=== PATIENT | male | born 1935 | race Caucasian/White ===

== ENCOUNTER 2017-07-13 20:55 | Inpatient (IN) | payer MEDICARE, BC ==
[2017-07-13] MEDS: IV NORMAL SALINE 1000ML BAG 1,000 ML IV ×2 (21:30)
[2017-07-13] MEDS ORDERED: ONDANSETRON PF 4 MG/2 ML VIAL. IV ×2 (21:30)
[2017-07-13 21:45] LABS: BASO % 0 % (0-3); EOS # 0.1 x10^3/uL (0.0-0.7); EOS % 1 % (0-3); HEMATOCRIT 32.4 % (39.0-53.0); HEMOGLOBIN 11.5 g/dL (13.0-17.5); LYMPH # 0.8 x10^3/uL (1.0-4.8); LYMPH % 8 % (24-48); MEAN CORPUSCULAR HEMOGLOBIN 35 pg (25-35); MEAN CORPUSCULAR HGB CONC 36 g/dL (31-37); MEAN CORPUSCULAR VOLUME 98 fL (79-100); MONO # 0.4 x10^3/uL (0.0-1.1); MONO % 4 % (0-9); NEUT # 9.1 x10^3uL (1.8-7.7); NEUT % 88 % (31-73); PLATELET COUNT 250 x10^3/uL (140-400); RED BLOOD COUNT 3.32 x10^6/uL (4.30-5.70); RED CELL DISTRIBUTION WIDTH 12.6 % (11.5-14.5); WHITE BLOOD COUNT 10.4 x10^3/uL (4.0-11.0)
[2017-07-13] MEDS ORDERED: ONDANSETRON PF 4 MG/2 ML VIAL. ×2 (21:47)
[2017-07-13] MEDS: cloNIDine HCL 0.1 MG TABLET PO ×2 (21:50)
[2017-07-13 21:56] LABS: ANION GAP 10 (6-14); BLOOD UREA NITROGEN 25 mg/dL (8-26); BUN/CREATININE RATIO 21 (6-20); CALCIUM 9.6 mg/dL (8.5-10.1); CARBON DIOXIDE 28 mmol/L (21-32); CHLORIDE 101 mmol/L (98-107); CREATININE 1.2 mg/dL (0.7-1.3); GFR 57.7; GLUCOSE 162 mg/dL (70-99); POTASSIUM 4.3 mmol/L (3.5-5.1); SODIUM 139 mmol/L (136-145)
[2017-07-13 21:57] LABS: ADD MAN DIFF? YES
[2017-07-13] MEDS: ONDANSETRON PF 4 MG/2 ML VIAL. IV ×2 (21:59)
[2017-07-13 22:01] LABS: ALBUMIN 4.3 g/dL (3.4-5.0); ALBUMIN/GLOBULIN RATIO 1.1 (1.0-1.7); ALK PHOS 67 U/L (46-116); ALT (SGPT) 31 U/L (16-63); AST (SGOT) 24 U/L (15-37); LIPASE 205 U/L (73-393); TOTAL BILIRUBIN 0.2 mg/dL (0.2-1.0); TOTAL PROTEIN 8.1 g/dL (6.4-8.2)
[2017-07-13 22:04] LABS: TROPONINI < 0.017 ng/mL (0.000-0.055)
[2017-07-13 22:07] LABS: DIG 1.9 ng/mL (0.9-2.0)
[2017-07-13 22:21] LABS: % BANDS 1 % (0-9); % LYMPHS 8 % (24-48); % SEGS 91 % (35-66)
[2017-07-13 22:24] LABS: PLT ESTIMATE ADEQUATE (ADEQUATE); POLYCHROMASIA SLIGHT; TOXIC GRANULATION MOD
[2017-07-13] MEDS ORDERED: CONTRAST GIVEN MC ×2 (22:30)
[2017-07-13] MEDS: IOHEXOL 300 MG/ML 100ML VIAL. IV ×2 (22:32)
[2017-07-13] MEDS ORDERED: fentaNYL PF VIAL 100 MCG/2 ML VIAL ×2 (22:39)
[2017-07-13] MEDS: fentaNYL PF VIAL 100 MCG/2 ML VIAL IV ×2 (22:46)
[2017-07-13] MEDS: MORPHINE SULFATE 4 MG/ML DISP.SYRIN. IV ×2 (23:45)
[2017-07-14] MEDS: LIDO:MAALOX:DONNATAL 1:1:1 15 ML SINGLE DOSE SWSW ×2 (01:07)
[2017-07-14 01:44] LABS: LACTIC ACID 1.6 mmol/L (0.4-2.0)
[2017-07-14] MEDS ORDERED: ONDANSETRON PF 4 MG/2 ML VIAL. IV ×2 (02:30)
[2017-07-14] MEDS ORDERED: MORPHINE SULFATE 2 MG/ML DISP.SYRIN. IV ×2 (02:30)
[2017-07-14] MEDS ORDERED: IV NORMAL SALINE 1000ML BAG 1,000 ML IV ×2 (03:00)
[2017-07-14] MEDS ORDERED: cloNIDine HCL 0.1 MG TABLET ×2 (03:27)
[2017-07-14] MEDS: cloNIDine HCL 0.2 MG TABLET PO ×2 (03:29)
[2017-07-14] MEDS: CHOLECALCIFEROL (VITAMIN D3) 1,000 UNIT TABLET PO ×2 (08:47)
[2017-07-14] MEDS: ASPIRIN ENTERIC COATED 81 MG TABLET.DR. PO ×2 (08:48)
[2017-07-14] MEDS: DIGOXIN 250 MCG TABLET. PO ×2 (08:48)
[2017-07-14] MEDS: GEMFIBROZIL 600 MG TABLET. PO ×2 (08:48)
[2017-07-14] MEDS: FAMOTIDINE 20 MG/2 ML VIAL IVP ×2 (08:49)
[2017-07-14] MEDS: LOSARTAN POTASSIUM 50 MG TABLET. PO ×2 (08:49)
[2017-07-14] MEDS: VITAMIN B COMPLEX TABLET. PO ×2 (08:49)
[2017-07-14 08:51] LABS: TROPONINI 0.021 ng/mL (0.000-0.055)
[2017-07-14] MEDS ORDERED: FINASTERIDE 5 MG TABLET. PO ×2 (21:00)
[2017-07-14] MEDS ORDERED: ATORVASTATIN CALCIUM 10 MG TABLET. PO ×2 (21:00)
== END 2017-07-14 17:20 | disposition home or self-care (01) | DRG 445 ==
LOC: 1 WEST ICU 07-14 02:18 → 2 NORTH 07-14 03:17 → ER 20:55
DX: K80.20 Calculus of gallbladder without cholecystitis without obstruction (principal); K55.1 Chronic vascular disorders of intestine; D64.9 Anemia, unspecified; N18.3 Chronic kidney disease, stage 3 (moderate); Z95.1 Presence of aortocoronary bypass graft; I65.21 Occlusion and stenosis of right carotid artery; E74.39 Other disorders of intestinal carbohydrate absorption; E78.5 Hyperlipidemia, unspecified; I12.9 Hypertensive chronic kidney disease with stage 1 through stage 4 chronic kidney disease, or unspecified chronic kidney disease; I25.10 Atherosclerotic heart disease of native coronary artery without angina pectoris; K21.9 Gastro-esophageal reflux disease without esophagitis; K44.9 Diaphragmatic hernia without obstruction or gangrene; K82.8 Other specified diseases of gallbladder; N40.0 Benign prostatic hyperplasia without lower urinary tract symptoms; Z87.891 Personal history of nicotine dependence; Z95.5 Presence of coronary angioplasty implant and graft; Z88.0 Allergy status to penicillin
CPT/HCPCS: 36415; 71045; 71275; 74174; 80053; 80162; 83605; 83690; 84484; 85007; 85025; 93005; 96374; 96375; 99285; 99285-25; J2270; J3010; Q9967; S0028

== ENCOUNTER → 2018-09-14 | Outpatient (CLI) | payer MEDICARE, BC ==
[2017-07-14 15:00] VITALS: BP 91/37
[~2018-09-14] MED LIST: ASCO500C PO; ASCO500T3 PO; ASPI-252 PO; ASPI-482 PO; ASPI-630 PO; ASPI325T8 PO; CHOL10002 PO; DIGO0.25 PO; DIGO250T PO; DILT240C2 PO; DILT360C PO; FINA5TAB4 PO; GEMF600T8 PO; LISI-334 PO; LOSA-73 PO; OLME20TA17 PO; PRAV10TA2 PO; REGADENOSON 0.4 MG/5 ML DISP.SYRIN. IV ONE; VITA1CAP PO
--- NOTE | 2018-09-14 10:12 | CARD ---
MR#: [id number] Date of Study: 09/14/2018 Ordering Physician: MYRANDA ZAMARRIPA, Referring Physician: MYRANDA ZAMARRIPA, Tech: Ruth Gomes APPROVED REPORT EXAM: Two-dimensional and M-mode echocardiogram with Doppler and color Doppler. Other Information Quality : AverageHR: 44bpm Technically limited study due to body habitus. INDICATION CAD RISK FACTORS Hypertension 2D DIMENSIONS Left Atrium(2D)3.6 (1.6-4.0cm)IVSd1.5 (0.7-1.1cm) Aortic Root(2D)3.1 (2.0-3.7cm)LVDd4.8 (3.9-5.9cm) LVOT Diameter2.1 (1.8-2.4cm)PWd1.4 (0.7-1.1cm) LVDs2.8 (2.5-4.0cm)FS (%) 42.9 % SV80.5 mlLVEF(%)73.9 (>50%) Aortic Valve AoV Peak Smith.244.6cm/sAoV VTI57.0cm AO Peak GR.23.9mmHgLVOT Peak Smith.129.6cm/s LVOT VTI 34.65cmAO Mean GR.13mmHg TAMARA (VMAX)1.19lz3UKJ (VTI)2.09cm2 Mitral Valve MV E Xdfumpkp503.6cm/sMV DECEL DEGQ599nx MV A Emeamqdl44.8cm/sMV QUH81lg E/A Ratio1.0MVA (PHT)3.66cm2 TDI E/Lateral E'11.1E/Medial E'20.2 Pulmonary Valve PV Peak Vrifkome463.4cm/sPV Peak Grad.7mmHg Tricuspid Valve RAP ZIFXMPEE1tqSeYA Peak Gr.25mmHg WKNV94mbTb Pulmonary Vein S1 Irkionvi83.4cm/sD2 Fxqxwwof16.0cm/s PVa hhnqdiur149bhzk LEFT VENTRICLE The left ventricle is normal size. There is moderate concentric left ventricular hypertrophy. The lef t ventricular systolic function is normal and the ejection fraction is within normal range. The Eject ion Fraction is >55%. Wall motion consistent to a conduction abnormality. Cannot rule out septal hypo kinesis. Transmitral Doppler flow pattern is Grade II-pseudonormal filling dynamics. RIGHT VENTRICLE RV not well visualized. There is normal right ventricular wall thickness. The right ventricular systo lic function is normal. ATRIA The left atrium size is normal. The right atrium size is normal. The interatrial septum is intact wit h no evidence for an atrial septal defect or patent foramen ovale as noted on 2-D or Doppler imaging. AORTIC VALVE The aortic valve is calcified Doppler and Color Flow revealed trace to mild aortic regurgitation. The re is no significant aortic valvular stenosis. Calculated aortic valve area is 2 cm2 with maximum pre ssure gradient of 24 mmHg and mean pressure gradient of 13 mmHg. MITRAL VALVE The mitral valve is normal in structure and function. There is no evidence of mitral valve prolapse. There is no mitral valve stenosis. Doppler and Color Flow revealed no mitral valve regurgitation note d. TRICUSPID VALVE The tricuspid valve is normal in structure and function. Doppler and Color Flow revealed no tricuspid valve regurgitation noted with an estimated PAP of 28 mmHg. There is no tricuspid valve stenosis. PULMONIC VALVE The pulmonic valve is not well visualized. Doppler and Color Flow revealed no pulmonic valvular regur gitation. GREAT VESSELS The aortic root is normal in size. The IVC was not visualized. PERICARDIAL EFFUSION There is no evidence of significant pericardial effusion. Critical Notification Critical Value: No <Conclusion> The left ventricular systolic function is normal and the ejection fraction is within normal range. Th e Ejection Fraction is >55%. Wall motion consistent to a conduction abnormality. Cannot rule out septal hypokinesis. Technically difficult study. No significant valvular disease. Signed by : Aleksey Fuentes, Electronically Approved : 09/14/2018 10:12:24
--- NOTE | 2018-09-14 12:42 | RAD ---
MR#: [id number] Date of Study: 09/14/2018 Ordering Physician: MYRANDA ZAMARRIPA Referring Physician: BIGG VAZQUEZ Tech: RT Zen (R) (N) APPROVED REPORT Test Type: Pharmacological Stress Nurse/Tech: Yolanda Barragan RN Test Indications: CAD Cardiac History: CABG, Stents, HTN, x smoker Medications: See Electronic Medical Record Medical History: See Electronic Medical Record Resting ECG: Sinus Bradycardia with BBB Resting Heart Rate: 52 bpm Resting Blood Pressure: 184/69mmHg Pretest Chest Pain: No chest pain Nurse/Tech Notes Lungs CTA, S1S2 Consent: The procedure was explained to the patient in lay terms. Informed consent was witnessed. Jose Daniel eout was entered into [employer]. History and Stress Test performed by Yolanda Barragan RN Pharm. Details Pharmacologic stress testing was performed using 0.4mg per 5ml of regadenoson given intravenously ove r 7-10 seconds. Stress Symptoms No chest pain or symptoms. POST EXERCISE Reason for Termination: Infusion complete Max HR: 68 bpm Max Blood Pressure: 182/51mmHg Blood Pressure response to exercise: Normal blood pressure response during stress. Heart Rate response to exercise: normal response Chest Pain: No. Arrhythmia: Yes. PAC ST Change: No. INTERPRETATION Stress EKG Conclusion: Baseline EKG showed sinus rhythm, RBBB with inferolateral ST depressions and T wave inversions. Non diagnostic changes at peak stress. No arrhythmias. Imaging Protocol IMAGE PROTOCOL: Rest Tc-99m/stress Tc-99m 1 day Rest: Stress: Viability: Radiopharm.Tc99m ZznceofeiGz76w Sestamibi Dose10.2mCi 31mCi Duration 15min. 15min. Img Date 09/14/2018 09/14/2018 Inj-Img Ixpo78fxo. 60min. Rest Admin Site:IV - Right AntecubitalAdministrator:RT Scooter (R)(N) Stress Admin Site: IV - Right AntecubitalAdministrator: ARA Leon STRESS DATA End Diast. Vol.117.0mlAv. Heart Rate63.0bpm End Syst. Vol.31.0mlCO Index BSA0.0L/min Myocardial Tbog100.0gEject. Qjstgsly66.0% Stress Rates Pk. Fill Rate3.13EDV/secLVtime Pk. Fill 139.30msec Pk. Empty Rate3.94ESV/secLVtime Pk. Fslcq259.44msec 1/3 Pk. Fill1.84EDV/sec Stress Scores Regional WT0.00Summed WT11.00 Regional WM0.00Summed WM4.00 Study quality was good. Left Ventricular size was Normal at Rest and Stress. Lung uptake was . Left Ventricular ejection fraction is 74%. The rest and stress images show normal perfusion, normal contraction and thickening. LV Perf. Quant 17 Seg. SSS3.00 17 Seg. SRS0.00 17 Seg. SDS3.00 Stress Defect Extent (% LAD)0.00Rest Defect Extent (% LAD)0.00Rev. Defect Extent (% LAD)0.00 Stress Defect Extent (% LCX) 26.30Rest Defect Extent (% LCX)0.00Rev. Defect Extent (% LCX)25.00 Stress Defect Extent (% RCA)0.00Rest Defect Extent (% RCA)0.00Rev. Defect Extent (% RCA)0.00 Stress Defect Extent (% SACHI)4.60Rest Defect Extent (% SACHI)0.00Rev. Defect Extent (% SACHI)4.30 Conclusion 1. Regadenoson cardioisotope stress test did not show any evidence of ischemia or infarct. 2. Normal left ventricular systolic function with ejection fraction calculated at 74%. 3. Low risk for cardiac events. Signed by : Myranda Zamarripa, Electronically Approved : 09/14/2018 12:41:45
--- NOTE | 2018-09-16 11:52 | RAD ---
MR#: [id number] Date of Study: 09/14/2018 Ordering Physician: MYRANDA ZAMARRIPA, Referring Physician: MYRANDA ZAMARRIPA Tech: Daniela Mckenna RVT, CARLITOS APPROVED REPORT Patient Location: OUT-PATIENT Indications Leg pain VELOCITY AND DOPPLER WAVEFORM ANALYSIS RIGHT cm/secWaveformSeverity LEFT cm/secWaveform Severity pCFA 295.0BiphasicpCFA 303.7Biphasic Prof Fem Art. 192.8BiphasicProf Fem Art. 298.5Biphasic Fem Art Prox. 175.5BiphasicFem Art Prox. 219.8Biphasic Fem Art Mid. 196.7BiphasicFem Art Mid. 144.0Biphasic Fem Art Dist. 163.6BiphasicFem Art Dist. 164.5Biphasic Pop Art(Fossa) 170.2BiphasicPop Art(AK) 208.2Biphasic LICENSED PSYCHOLOGIST DIRECTOR Prox. 70.1BiphasicPTA Prox. 91.5Biphasic LICENSED PSYCHOLOGIST DIRECTOR Dist. 164.5BiphasicPTA Dist. 50.5Biphasic Per Art Dist.76.0BiphasicPer Art Dist.92.5Biphasic JACQUELINE Dist. 39.4BiphasicATA Dist. 29.4Biphasic DPA 34MonophasicDPA 26Monophasic Findings Grayscale images of the right lower extremity arterial vessels demonstrate mild diffuse atherosclerot ic plaquing. On the right the common femoral artery velocities elevated in a biphasic wave pattern suggestive of m ore proximal disease versus high flow state. Velocities are otherwise elevated throughout the arteria l course but based on virgen scale images and spectral Doppler imaging there does not appear to be any focal stenosis identified. There is three-vessel runoff below the knee with probable greater than 50% stenosis involving the anterior tibial artery and monophasic waveforms in the dorsalis pedis vessels . Grayscale images of the left lower extremity arterial vessels demonstrate moderate diffuse atheroscle rotic plaque with the most plaque located at the site of the left common femoral artery. There is lik alan greater than 75% stenosis involving this vessel. Velocities and grayscale images are otherwise un remarkable except for moderate adventitial calcification and mostly biphasic and wave pattern from th e SFA to the popliteal segments. The velocities in the posterior tibial and peroneal vessels are with in normal limits. The anterior tibial velocities are monophasic and wave pattern and severely diminis hed. Dorsalis pedis velocities are essentially nonvisualized. Critical Notification Critical Value: No <Conclusion> 1. High flow velocities in the bilateral common femoral arteries suggestive of more proximal disease versus high flow state. There likely is a greater than 75% stenosis involving the left common femoral artery 2. Mostly biphasic waveforms throughout the lower extremity arterial tree without any focal high-grad e stenosis identified unless as noted above. 3. Three-vessel runoff below the knee bilaterally with bilateral greater than 50% stenosis involving the anterior tibial vessels. 4. Significant arterial adventitial calcification noted. Signed by : Aleksey Fuentes, Electronically Approved : 09/16/2018 11:51:52
== END | disposition home or self-care (01) ==
LOC: ECHO 07:28
PROVIDERS: ATTEND Internal Medicine Cardiovascular Disease
DX: I35.1 Nonrheumatic aortic (valve) insufficiency (principal); I11.9 Hypertensive heart disease without heart failure; I45.10 Unspecified right bundle-branch block; I49.8 Other specified cardiac arrhythmias; I70.203 Unspecified atherosclerosis of native arteries of extremities, bilateral legs; I25.10 Atherosclerotic heart disease of native coronary artery without angina pectoris; Z95.1 Presence of aortocoronary bypass graft; Z95.818 Presence of other cardiac implants and grafts; Z87.891 Personal history of nicotine dependence
CPT/HCPCS: 78452; 93017; 93306; 93925; A9500; J2785

== ENCOUNTER 2018-10-05 06:54 | Observation (INO) | payer MEDICARE, BC ==
[2018-10-05] VITALS (28 sets, daily range): BP systolic 59–217; BP diastolic 40–89
[~2018-10-05] VITALS: Ht 177.8 cm; Wt 72.4 kg
[~2018-10-05 06:54] MED LIST changes: -ASCO500C PO; -ASPI-630 PO; -DILT240C2 PO; -OLME20TA17 PO; -REGADENOSON 0.4 MG/5 ML DISP.SYRIN. IV ONE
[2018-10-05] MEDS ORDERED: ASPI-630 PO (07:16)
[2018-10-05] MEDS ORDERED: DILT240C2 PO (07:16)
[2018-10-05] MEDS ORDERED: ASCO500C PO (07:16)
[2018-10-05 07:39] LABS: HEMATOCRIT 32.5 % (39.0-53.0); RED BLOOD COUNT 3.28 x10^6/uL (4.30-5.70); RED CELL DISTRIBUTION WIDTH 12.5 % (11.5-14.5); WHITE BLOOD COUNT 7.7 x10^3/uL (4.0-11.0)
[2018-10-05] MEDS ORDERED: LIDOCAINE 1% Multi-Dose 20 ML VIAL. ONE (07:40)
[2018-10-05] MEDS ORDERED: IODIXANOL 320 MG/ML 100 ML VIAL. ONE (07:40)
[2018-10-05 07:46] LABS: PROTHROMBIN TIME PATIENT 12.4 SEC (11.7-14.0)
[2018-10-05 08:05] LABS: CALCIUM 9.4 mg/dL (8.5-10.1); CREATININE 1.2 mg/dL (0.7-1.3); GFR 57.5; POTASSIUM 4.3 mmol/L (3.5-5.1)
[2018-10-05] MEDS ORDERED: fentaNYL PF VIAL 100 MCG/2 ML VIAL ONE (08:24)
[2018-10-05] MEDS ORDERED: MIDAZOLAM HCL/PF 2 MG/2 ML VIAL. ONE (08:24)
[2018-10-05] MEDS ORDERED: hydrALAZINE 20 MG/ML VIAL. ONE (08:47)
[2018-10-05] MEDS ORDERED: MIDAZOLAM HCL/PF 2 MG/2 ML VIAL. IV ONE (09:15)
[2018-10-05] MEDS ORDERED: IODIXANOL 320 MG/ML 100 ML VIAL. IART ONE (09:15)
[2018-10-05] MEDS ORDERED: hydrALAZINE 20 MG/ML VIAL. IVP ONE (09:15)
[2018-10-05] MEDS ORDERED: LIDOCAINE 1% Multi-Dose 20 ML VIAL. INJ ONE (09:15)
[2018-10-05] MEDS ORDERED: fentaNYL PF VIAL 100 MCG/2 ML VIAL IV ONE (09:15)
[2018-10-05] MEDS: IV 1/2 NORMAL SALINE 1,000 ML IV SCH ×2 (09:26→19:26)
--- NOTE | 2018-10-05 09:26 | PDOC ---
MODERATE SEDATION ASSESSMENT RISKS/ALTERNATIVES Risks/Alternatives Risks and alternatives of this type of sedation and procedure discussed with: RISK/ALTERNATIVES: Patient H & P ON CHART H & P H & P on chart and reviewed for co-morbid conditions and appropriate labs. H&P ON CHART: Yes STATUS PREG STATUS ASSESSED: N/A MEDS/ALLERGIES REVIEWED Meds/Allergies Reviewed Medications and Allergies including time and route of recently administered narcotics and sedatives. MEDS/ALLERGIES REVIEWED: Yes ASA RATING ASA RATING: II AIRWAY ASSESSMENT Airway Assessment Airway patency, oral function limitations, presence of caps, crowns, dentures, partials, and ability to extend neck assessed. AIRWAY ASSESSMENT: Yes MALLAMPATI SCORE MALLAMPATI SCORE: II PRE-SEDATION ASSESSMENT PRE-SEDATION ASSESSMENT: Yes MYRANDA ZAMARRIPA MD October 05, 2018 09:26
[2018-10-05] MEDS ORDERED: ACETAMINOPHEN 325 MG TABLET. PO PRN (09:30)
--- NOTE | 2018-10-05 09:42 | CARD ---
MR#: [id number] Date of Study: 10/05/2018 Ordering Physician: MYRANDA HO, Referring Physician: MYRANDA HO Tech: Chastity Ndiaye RTR APPROVED REPORT Patient StatusOUT-PATIENT Pst Supervisor: Chastity Ndiaye RTR Procedure(s) performed: Aortogram with bilateral lower extremity runoff Moderate Sedation time: 33 minutes Contrast: 75 Fluoro time: 3.6min INDICATION FOR PROCEDURE The indication(s) include : Claudication and abnormal arterial duplex scan. PROCEDURE NARRATIVE After explaining the risks, benefits and alternative options, informed consent was obtained from tony ent. Patient was brought to the cardiac Accounting Generalist and his right groin was prepped and draped in the us ual fashion. 10 mL of 2% lidocaine was infiltrated into the skin and subcutaneous tissues for local a nesthesia. Arterial access was obtained in the right common femoral artery and a 5 Indian sheath was inserted. 5 Indian pigtail catheter was used to perform aortogram with bilateral lower extremity runo ff. The aortic flaco was crossed with the help of a 5 Indian crossover catheter which was then excha nged to a 4 Indian angled glide wire and with the tip positioned in the left external iliac artery, s elective left lower extremity angiography was performed. Since patient had borderline stenosis noted in the left common femoral artery, the angled glide catheter was advanced into the left superficial f emoral artery and pullback gradient across the left common femoral artery was performed. Patient sukumar rated the procedure well. Hemostasis was achieved using mynx closure device. There were no immediate complications. FINDINGS 1. No significant stenosis involving the distal descending aorta 2. No significant stenosis involving bilateral common and external iliac arteries 3. 30% stenosis involving the right common femoral artery. 50% stenosis involving left common femora l artery with pullback gradient of only 5 mmHg. 4. No significant stenosis involving bilateral superficial femoral arteries. 5. No significant stenosis involving right popliteal artery. The left popliteal artery showed 30% pr oximal segment stenosis. 6. The right anterior tibial artery showed 100% chronic total occlusion in the proximal segment with distal reconstitution from collaterals. The right peroneal artery did not show any significant steno sis. The right posterior tibial artery showed 40% stenosis in the midsegment. 7. The left anterior tibial artery showed 100% chronic total occlusion in the proximal segment. The left peroneal artery did not show any significant stenosis. The left posterior tibial artery showed 7 0-80% stenosis in the proximal segment. Conclusion 50% stenosis of the left common femoral artery with insignificant pullback gradient of only 5 mmHg. B elow the knee peripheral vascular disease as described above. Recommendations Vascular risk factor modification and regular exercise regimen. Signed by : Myranda Ho, Electronically Approved : 10/05/2018 09:41:40
[2018-10-05] MEDS ORDERED: IV NORMAL SALINE 500ML BAG 250 ML IV ONE (11:30)
--- NOTE | 2018-10-05 12:51 | NUR ---
Cheryl ARCOS notified Dr. Ho that patient became dizzy and lightheaded when he got up to the bathroom at 1205. Dr. Ho came to CV/OBS to assess the patient (1215) and asked that we keep him an additional hour to monitor his blood pressures. Right groin site is soft with no bleeding. IV fluids restarted at 100cc an hour. Patient asked for some raisin bran and juice and tolerated his meal well. Patient's blood pressure continues to drop when he stands to move (80/38), will continue to monitor.
[2018-10-05 13:53] LABS: HEMATOCRIT 29.1 % (39.0-53.0); RED BLOOD COUNT 2.91 x10^6/uL (4.30-5.70); RED CELL DISTRIBUTION WIDTH 12.4 % (11.5-14.5); WHITE BLOOD COUNT 8.7 x10^3/uL (4.0-11.0)
--- NOTE | 2018-10-05 14:36 | NUR ---
Pt transferred to room 203. report called to ISRRAEL Sparks
[2018-10-05] MEDS ORDERED: OLME20TA17 PO (14:52)
[2018-10-06 03:35] VITALS: BP 146/66
[2018-10-06] MEDS: IV 1/2 NORMAL SALINE 1,000 ML IV SCH (05:26)
[2018-10-06 07:00] VITALS: BP 123/65
[2018-10-06 11:00] VITALS: BP 124/81
--- NOTE | 2018-10-06 11:31 | PDOC ---
CARDIOLOGY PROGRESS NOTE SUBJECTIVE: No acute events overnight. Admitted for observation after post- femoral angiography orthostasis. No signs of acute blood loss. No back pain. OBJECTIVE: Vital SIgns: Vital Signs Date Time Temp Pulse Resp B/P (MAP) Pulse Ox O2 Delivery O2 Flow Rate FiO2 10/06/18 07:00 98.0 79 18 123/65 (84) 97 Room Air 98.0 10/05/18 09:16 2.0 I & O Intake and Output 10/06/18 07:00 Intake Total 400 ml Output Total 350 ml Balance 50 ml Intake Oral 400 ml Output Urine Total 350 ml # Voids 2 Objective: GEN.: No apparent distress. Alert and oriented. HEENT: Head is normocephalic, atraumatic NECK: Supple. LUNGS: Clear to auscultation. HEART: RRR, S1, S2 present. Peripheral pulses intact ABDOMEN: Soft, nontender. Positive bowel sounds. EXTREMITIES: Without any cyanosis. NEUROLOGIC: Normal speech, normal tone PSYCHIATRIC: Normal affect, normal mood. SKIN: No ulcerations CURRENT MEDICATIONS: Home meds: ASA 81mg daily Lopid 600mg bid Diltiazem 240mg daily Digoxin 250mcg daily losartan 50mg daily DIAGNOSTIC TESTING: Echo/stress wnl. in 2019 Femoral angiogram without any significant disease. hgb/plts stable. normal INR. ASSESSMENT: 1. Orthostatic hypotension - Most likely cause is vasoplegia from sedation. No obvious hematoma or bleeding. Still orthostatic but without symptoms now 2. CAD s/p CABG - No angina 3. PAD - stable 4. HTN PLAN: 1. Plan to hold Diltiazem and Losartan. Start half dose tonight if SBP > 150 or 160 and ok to DC if asymptomatic. 2. Compression socks and standing precautions. 3. f/u next week for a BP check 4. Evaluate need for jail digoxin therapy on an outpt basis. Thanks. D/w Dr. Valiente and patient/family. BEA KRISHNAN MD October 06, 2018 11:31
[2018-10-06] MEDS ORDERED: LOSARTAN POTASSIUM 25 MG TABLET. PO ONE (11:45)
[2018-10-06] MEDS ORDERED: GEMFIBROZIL 600 MG TABLET. PO SCH (13:00)
[2018-10-06] MEDS ORDERED: DIGOXIN 250 MCG TABLET. PO SCH (13:00)
[2018-10-06] MEDS ORDERED: ASCORBIC ACID 500 MG TABLET PO SCH (13:00)
[2018-10-06] MEDS ORDERED: ASPIRIN CHEWABLE 81 MG TABLET. PO SCH (13:00)
[2018-10-06] MEDS ORDERED: VITAMIN B COMPLEX TABLET. PO SCH (13:00)
[2018-10-06 14:05] VITALS: BP 159/71
[2018-10-06 14:10] VITALS: BP 149/69
[2018-10-06 14:15] VITALS: BP 142/72
--- NOTE | 2018-10-06 14:29 | PDOC ---
Provider Note Provider Note combined H&P and discharge dictated #[id number] Ana GUAJARDO MD October 06, 2018 14:29
--- NOTE | 2018-10-06 15:43 | NUR ---
Discharge Note: MONI OWENS [place] Discharge instructions and discharge home medications reviewed with Patient and a copy given. All questions have been answered and understanding verbalized. The following instructions and handouts were given. Discontinued lines and drains. Patient discharged to home self care.
--- NOTE | 2018-10-06 16:12 | HP ---
ADMIT DATE: 10/05/2018 DATE OF DISCHARGE: 10/06/2018. ADMISSION DIAGNOSIS: Hypotension after procedure. DISCHARGE DIAGNOSIS: Hypotension after procedure. HISTORY OF PRESENT ILLNESS: This is an 83-year-old white male who was brought in on the for an arteriogram with runoff of his lower extremities and was found to have a 50% stenosis of the left common femoral artery and below knee peripheral vascular disease, with a recommendation for vascular risk factor modification and regular exercise. After the procedure though, he became quite orthostatic and was unable to maintain a systolic blood pressure above 80. He was admitted, hydrated overnight. Home medications were held and things have normalized today. His orthostasis has resolved, these up now with only a 10-point change in his systolic pressures from 152-142 with standing, lying and sitting readings. PAST MEDICAL HISTORY: Significant for hearing loss, coronary artery disease, peripheral vascular disease. 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 Hypertension, hyperlipidemia, history of pneumonia, history of GERD, history of BPH and urinary retention. PAST SURGICAL HISTORY: 5-vessel CABG in 2003, cardiac catheterization 04/12. Cardiac stent in 2012. SOCIAL HISTORY: He is a former smoker, quit in 1959. He is . His is present. FAMILY HISTORY: Positive for hypertension and heart disease. ALLERGIES: He has no known drug allergies. HOME MEDICATIONS: Include vitamin C 500 mg daily, aspirin 81 daily, digoxin 250 mcg daily, diltiazem 240 mg extended release daily, finasteride 5 mg at bedtime, gemfibrozil 600 mg b.i.d., losartan 50 mg daily, pravastatin 10 mg one-half tab daily, vitamin B complex daily. REVIEW OF SYSTEMS: HEENT: He has hearing aids. CARDIAC: As above. PULMONARY: No cough or shortness of breath. GASTROINTESTINAL: No nausea, vomiting or change in bowels. GENITOURINARY: No blood in his urine. MUSCULOSKELETAL: No issues with his right groin puncture site. NEUROLOGIC: No vertigo, no neuropathy. SKIN: No lesions. No bruising. PHYSICAL EXAMINATION: VITAL SIGNS: His most recent orthostatic vital signs did not show significant drop. He received half dose of his losartan and diltiazem, his digoxin earlier today. Other meds were held overnight. He is well hydrated after being n.p.o. for his initial study yesterday. He is in no acute distress. HEART: Exam is otherwise unremarkable with a monitor showing occasional PVC and fairly regular rate despite missing P waves. LUNGS: Regular breathing effort. Lungs are clear. ABDOMEN: Soft, nondistended. NEUROLOGIC: His gait is normal. Strength is good in his legs. Right groin site is healthy without any bruising or tenderness. LABORATORY DATA: Labs show hemoglobin 10, INR of 1, glucose of 122 with otherwise normal BMP. IMAGING: His femoral runoff showed 50% stenosis, left common femoral artery, with significant pullback gradient of only 5 mmHg, 30% stenosis involving the right common femoral artery. Right anterior tibial showed 100% chronic total occlusion, but reconstituted with collaterals. Left anterior tibial artery showed 100% chronic total occlusion of the proximal segment and the left posterior tibial showed 70-80% stenosis in the proximal segment. Right posterior tibial artery showed 40% stenosis in the midsegment. The patient will be released home. Continue his routine meds. He will follow up Monday with Dr. Fuentes's office for orthostatic pressures. Most likely reason for his hypertension was a combination of being n.p.o. somewhat deprived of fluids, plus the anesthetic effect of doing this procedure. W Mustapha GUAJARDO MD DR: DALE/stacey JOB#: [id number] / [id number]
[2018-10-06] MEDS ORDERED: FINASTERIDE 5 MG TABLET. PO SCH (21:00)
[2018-10-06] MEDS ORDERED: ATORVASTATIN CALCIUM 10 MG TABLET. PO SCH (21:00)
== END 2018-10-06 14:45 | disposition home or self-care (01) ==
LOC: CCL 06:54 → 2 NORTH 14:15
PROVIDERS: ADMIT Family Medicine; ATTEND Internal Medicine Cardiovascular Disease
DX: I95.81 Postprocedural hypotension (principal); I25.10 Atherosclerotic heart disease of native coronary artery without angina pectoris; I10 Essential (primary) hypertension; E78.5 Hyperlipidemia, unspecified; K21.9 Gastro-esophageal reflux disease without esophagitis; I73.9 Peripheral vascular disease, unspecified; Z95.5 Presence of coronary angioplasty implant and graft; Z95.1 Presence of aortocoronary bypass graft; Z87.891 Personal history of nicotine dependence; Z87.01 Personal history of pneumonia (recurrent); Z82.49 Family history of ischemic heart disease and other diseases of the circulatory system; N40.1 Benign prostatic hyperplasia with lower urinary tract symptoms; L02.11 Cutaneous abscess of neck
CPT/HCPCS: 36245; 36415; 75630; 80048; 85027; 85610; 96374; 96375; C1713; C1769; C1892; G0269; G0378; G0379; J0360; J1644; J2250; J3010; J7040; Q9967; 99152; 99153

== ENCOUNTER → 2019-12-13 | Outpatient (CLI) | payer MEDICARE, BC ==
[2019-11-01 15:03] VITALS: BP 132/58
[~2019-12-13] MED LIST changes: +AMIO200T4 PO; +APIX2.5T PO; +ASCO500C PO; +ASPI-630 PO; +ASPI325T11 PO; +ATOR40TA59 PO; +CLOP75TA PO; +CYAN100T24 PO; -DIGO250T PO; +DIGO250T3 PO; +DILT120C99 PO; +DILT240C2 PO; +MECO10005 PO; +METO-239 PO; +OLME20TA17 PO
== END | disposition home or self-care (01) ==
LOC: LAB 14:12
PROVIDERS: ATTEND Internal Medicine Cardiovascular Disease
DX: Z01.818 Encounter for other preprocedural examination (principal); Z11.59 Encounter for screening for other viral diseases
CPT/HCPCS: C9803; U0003

== ENCOUNTER 2019-12-17 08:15 | Inpatient (IN) | payer MEDICARE, BC ==
[~2019-12-17] VITALS: Ht 177.8 cm; Wt 73.5 kg
[2019-12-17] VITALS (10 sets, daily range): BP systolic 150–200; BP diastolic 64–80
[~2019-12-17 08:15] MED LIST changes: -APIX2.5T PO; -CYAN100T24 PO; -DILT120C99 PO; -MECO10005 PO
[2019-12-17] MEDS ORDERED: BACITRACIN 50,000 UNIT in IV NORMAL SALINE 250ML 250 ML IRR ONE (08:30)
[2019-12-17] MEDS ORDERED: MECO10005 PO (08:49)
[2019-12-17] MEDS ORDERED: DILT120C99 PO (08:49)
--- NOTE | 2019-12-17 09:18 | EKG ---
[facility] [address] [place] [address] Test Date: 2019-12-17 Test Time: 09:16:06 Pat Name: MONI OWENS Department: Room: Gender: M Travel Consultant: SARI : [id number] Requested By: MYRANDA ZAMARRIPA Order Number: [id number] Reading MD: Measurements Intervals [place] Rate: 52 P: 2 ME: 224 QRS: 98 QRSD: 152 T: 39 QT: 528 QTc: 493 Interpretive Statements SINUS RHYTHM PROLONGED ME INTERVAL RIGHTWARD AXIS RIGHT BUNDLE BRANCH BLOCK QRS(T) CONTOUR ABNORMALITY CONSISTENT WITH INFERIOR INFARCT PROBABLY OLD ABNORMAL ECG RI6.02 Compared to ECG 11/01/2019 01:00:41 First degree AV block now present Right-axis deviation now present Myocardial infarct finding now present Atrial fibrillation no longer present Ventricular premature complex(es) no longer present
[2019-12-17] MEDS ORDERED: LIDOCAINE 2%/EPI 1:100,000 20 ML VIAL. ONE (09:25)
[2019-12-17] MEDS ORDERED: MIDAZOLAM HCL/PF 2 MG/2 ML VIAL. ONE (09:26)
[2019-12-17] MEDS ORDERED: fentaNYL PF VIAL 100 MCG/2 ML VIAL ONE (09:26)
[2019-12-17] MEDS ORDERED: ceFAZolin SODIUM IV Push 1 GM VIAL. IVP ONE ×2 (09:27→15:30)
[2019-12-17] MEDS ORDERED: MIDAZOLAM HCL/PF 2 MG/2 ML VIAL. IV ONE (09:30)
[2019-12-17] MEDS ORDERED: fentaNYL PF VIAL 100 MCG/2 ML VIAL IV ONE (09:30)
[2019-12-17] MEDS ORDERED: LIDOCAINE 2%/EPI 1:100,000 20 ML VIAL. IJ ONE (09:30)
[2019-12-17 09:41] LABS: HEMATOCRIT 33.5 % (39.0-53.0); HEMOGLOBIN 11.4 g/dL (13.0-17.5); RED BLOOD COUNT 3.47 x10^6/uL (4.30-5.70); RED CELL DISTRIBUTION WIDTH 13.5 % (11.5-14.5); WHITE BLOOD COUNT 7.1 x10^3/uL (4.0-11.0)
[2019-12-17 09:50] LABS: PROTHROMBIN TIME PATIENT 12.9 SEC (11.7-14.0)
[2019-12-17 09:54] LABS: CALCIUM 8.6 mg/dL (8.5-10.1); CREATININE 1.5 mg/dL (0.7-1.3); GFR 44.4; POTASSIUM 4.3 mmol/L (3.5-5.1)
[2019-12-17] MEDS ORDERED: ceFAZolin SODIUM IV Push 1 GM VIAL. IVP PRN (10:00)
--- NOTE | 2019-12-17 11:22 | PDOC ---
MODERATE SEDATION ASSESSMENT RISKS/ALTERNATIVES Risks/Alternatives Risks and alternatives of this type of sedation and procedure discussed with: RISK/ALTERNATIVES: Patient H & P ON CHART H & P H & P on chart and reviewed for co-morbid conditions and appropriate labs. H&P ON CHART: Yes STATUS PREG STATUS ASSESSED: N/A MEDS/ALLERGIES REVIEWED Meds/Allergies Reviewed Medications and Allergies including time and route of recently administered narcotics and sedatives. MEDS/ALLERGIES REVIEWED: Yes ASA RATING ASA RATING: III AIRWAY ASSESSMENT Airway Assessment Airway patency, oral function limitations, presence of caps, crowns, dentures, partials, and ability to extend neck assessed. AIRWAY ASSESSMENT: Yes MALLAMPATI SCORE MALLAMPATI SCORE: II PRE-SEDATION ASSESSMENT PRE-SEDATION ASSESSMENT: Yes MYRANDA ZAMARRIPA MD Dec 17, 2019 11:22
[2019-12-17] MEDS ORDERED: oxyCODONE/APAP 5/325 1 TAB TABLET PO PRN (11:30)
--- NOTE | 2019-12-17 11:36 | CARD ---
MR#: [id number] Date of Study: 12/17/2019 Ordering Physician: MYARNDA HO, Referring Physician: MYRANDA HO, Zack: Chastitymariela Ndiaye APPROVED REPORT PROCEDURES Implantation of Biotronik dual-chamber permanent pacemaker fl time: 5.7 mins dose: 15 gycm2 moderate sedation: 60 mins INDICATIONS Sick sinus syndrome, tachycardia-bradycardia syndrome PROCEDURE After explaining the risks, benefits, and alternative options, informed consent was obtained from the patient. The patient was brought to the cardiac catheterization lab and the left chest and shoulder were prepp ed and draped in a sterile manner. 30 cc of 2% lidocaine was infiltrated into the skin and subcutaneous tissues for local anesthesia. A n incision was made over the left infraclavicular fossa and using blunt dissection and cautery of poc ket was created. Venous access was obtained in the left subclavian vein and 8 and 6 Irish sheath in serted. A Biotronik bipolar active fixation right ventricular lead model Solia, serial #[id number] was advanced under fluoroscopic guidance and the tip was positioned in the right ventricular apex. Following thi s, a Biotronik bipolar active fixation right atrial lead model Solia, serial #[id number] was positioned in the right atrial appendage under fluoroscopic guidance. The leads were secured into place and we re attached to a Biotronik dual-chamber permanent pacemaker generator model Edora 8DR-T, serial #[id number]. This was placed in the pocket that was subsequently closed in 3 layers. Hemostasis was secure d. The right ventricular lead showed a sensing amplitude of 12 mV, impedance of 760 ohms and a threshold of 0.6 V. The right atrial lead showed a sensing amplitude of 2.2 mV, impedance of 525 ohms and a t hreshold of 1.1 V. Patient tolerated procedure well. There were no immediate complications. CONCLUSION Successful implantation of Biotronik dual-chamber permanent pacemaker for symptomatic sick sinus synd daren and tachycardia-bradycardia syndrome. Signed by : Myranda Ho, Electronically Approved : 12/17/2019 11:35:51
--- NOTE | 2019-12-17 12:06 | RAD ---
PORTABLE CHEST 1V History: Reason: POST PACEMAKER. / Spl. Instructions: / History: Comparison: October 16, 2019 Findings: Interval placement left-sided pacemaker with RV and RA leads. No pneumothorax. No consolidation or pleural effusion. Normal heart size.. Prior median sternotomy. Impression: 1. Interval placement left-sided pacemaker. No pneumothorax. Electronically signed by: Hero Luther DO (12/17/2019 12:03 PM) [id number]
[2019-12-17] MEDS ORDERED: ACETAMINOPHEN 325 MG TABLET. PO PRN (15:45)
[2019-12-17] MEDS: LOSARTAN POTASSIUM 50 MG TABLET. PO SCH (15:54)
[2019-12-17] MEDS: hydrALAZINE 20 MG/ML VIAL. IVP PRN ×2 (15:54→20:36)
[2019-12-17] MEDS ORDERED: CYAN100T21 PO (20:10)
[2019-12-17] MEDS ORDERED: ATORVASTATIN CALCIUM 40 MG TABLET. PO SCH (21:00)
[2019-12-17] MEDS ORDERED: FINASTERIDE 5 MG TABLET. PO SCH (21:00)
[2019-12-18] MEDS: hydrALAZINE 20 MG/ML VIAL. IVP PRN (02:53)
[2019-12-18 03:00] VITALS: BP 190/80
[2019-12-18 07:00] VITALS: BP 162/67
[2019-12-18] MEDS ORDERED: CLOPIDOGREL BISULFATE 75 MG TABLET PO SCH (08:00)
[2019-12-18] MEDS: LOSARTAN POTASSIUM 50 MG TABLET. PO SCH (08:13)
[2019-12-18 08:14] VITALS: BP 162/67
[2019-12-18] MEDS ORDERED: AMIODARONE HCL 200 MG TABLET. PO SCH (09:00)
[2019-12-18] MEDS ORDERED: CYANOCOBALAMIN (VITAMIN B-12) 100 MCG TABLET. PO SCH (09:00)
[2019-12-18] MEDS ORDERED: ASPIRIN CHEWABLE 81 MG TABLET. PO SCH (09:00)
[2019-12-18] MEDS ORDERED: METOPROLOL SUCC 24HR ER 25 MG TAB.ER.24H. PO SCH (09:00)
[2019-12-18] MEDS ORDERED: ASCORBIC ACID 500 MG TABLET PO SCH (09:00)
[2019-12-18] MEDS ORDERED: LOSARTAN POTASSIUM 50 MG TABLET. PO SCH (09:00)
--- NOTE | 2019-12-18 10:13 | RAD ---
CHEST PA LATERAL History: Reason: 1 day post pacemaker / Spl. Instructions: / History: Comparison: December 17, 2019 Findings: No consolidation or pleural effusion. Normal heart size. No pneumothorax. Stable left transverse pacemaker. Prior median sternotomy. Calcified right basilar pulmonary nodule, likely prior granulomatous disease. Impression: 1. Stable left transvenous pacemaker. No pneumothorax. Electronically signed by: Hero Luther DO (12/18/2019 10:10 AM) [id number]
[2019-12-18] MEDS ORDERED: APIX2.5T PO (10:34)
[2019-12-18] MEDS ORDERED: CLOPIDOGREL BISULFATE 75 MG TABLET PO ONE (11:45)
[2019-12-18] MEDS ORDERED: CLOP75TA PO ×2 (11:54→11:56)
--- NOTE | 2019-12-18 12:19 | NUR ---
Discharge Note: PT DISCHARGED HOME WITH SELF CARE. PT LEFT FACILITY VIA PRIVATE VEHICLE WITH AND DAUGHTER AT 1215. PT STABLE AND ALERT UPON DISCHARGE. PT PIV'S REMOVED FROM L WRIST AND R FA WITHOUT COMPLICATIONS, BANDAGE APPLIED. PT EDUCATED ABOUT DISCHARGE INSTRUCTIONS, DISCHARGE MEDICATIONS, AND FOLLOW-UP CARE/APPOINTMENTS. PT EDUCATED ABOUT POST PACEMAKER PLACEMENT RESCTRICTIONS. NO CONCERNS VOICED AT THIS TIME. PT LEFT WITH ALL PERSONAL BELONGINGS. MONI OWENS Discharge instructions and discharge home medications reviewed with Patient and a copy given. All questions have been answered and understanding verbalized.
--- NOTE | 2019-12-18 12:19 | NUR ---
SS following for discharge planning. SS reviewed pt chart and discussed with pt RN. Pt is from home with spouse and is currently on room air. Discharge order on the chart for home with self care.
--- NOTE | 2019-12-18 20:05 | PDOC3 ---
Discharge Summary Visit Information Date of Admission: Dec 17, 2019 Date of Discharge: Dec 18, 2019 Admitting Diagnosis: SSS Final Diagnosis Sick sinus syndrome Tachy-Matthew syndrome HTN Paroxysmal atrial fibrillation Brief Hospital Course Allergies Allergies Coded Allergies Type Severity Reaction Last Updated Verified No Known Drug Allergies 10/05/18 No Vital Signs Vital Signs Date Time Temp Pulse Resp B/P (MAP) Pulse Ox O2 Delivery O2 Flow Rate FiO2 12/18/19 08:14 66 162/67 12/18/19 08:00 Room Air 12/18/19 07:00 98.2 20 98 98.2 12/17/19 11:18 2.0 Lab Results Laboratory Tests Test 12/17/19 09:25 White Blood Count 7.1 x10^3/uL (4.0-11.0) Red Blood Count 3.47 x10^6/uL (4.30-5.70) Hemoglobin 11.4 g/dL (13.0-17.5) Hematocrit 33.5 % (39.0-53.0) Mean Corpuscular Volume 97 fL (79-100) Mean Corpuscular Hemoglobin 33 pg (25-35) Mean Corpuscular Hemoglobin Concent 34 g/dL (31-37) Red Cell Distribution Width 13.5 % (11.5-14.5) Platelet Count 238 x10^3/uL (140-400) Prothrombin Time 12.9 SEC (11.7-14.0) Prothromb Time International Ratio 1.0 (0.8-1.1) Sodium Level 140 mmol/L (136-145) Potassium Level 4.3 mmol/L (3.5-5.1) Chloride Level 106 mmol/L (98-107) Carbon Dioxide Level 27 mmol/L (21-32) Anion Gap 7 (6-14) Blood Urea Nitrogen 24 mg/dL (8-26) Creatinine 1.5 mg/dL (0.7-1.3) Estimated GFR (Cockcroft-Gault) 44.4 Glucose Level 111 mg/dL (70-99) Calcium Level 8.6 mg/dL (8.5-10.1) Brief Hospital Course Mr. Connell is a 84 old male with symptomatic SSS/tacy-matthew syndrome underwent successful PPM implantation. He remained hemodynamically stable and symptom free during hospital stay and incision looked goog, device check good and CXR without pneumothorax at [place]. He will follow up with our office as scheduled. Discharge Information Scheduled Amiodarone Hcl (Amiodarone Hcl) 200 Mg Tablet, 200 MG PO DAILY for AFIB for 30 Days, #30 Ref 3 Start after your 1 week dosing of 400 mg twice a day is complete. Prescribed by: GAURAV JACOBS on 11/01/19 1110 Last Taken: Unknown Dose on 12/17/19 Last Action: Continued on 12/17/192016 by ROCKY GUTIERREZ RN Apixaban (Eliquis) 2.5 Mg Tablet, 2.5 MG PO BID for AFIB for 30 Days, #60 Ref 3 Prescribed by: GAURAV JACOBS on 12/18/19 1034 Ascorbic Acid (Vitamin C) 500 Mg Capsule.er, 500 MG PO DAILY for rx, (Reported) Entered as Reported by: MIKO STEPHEN on 10/05/18 0716 Last Action: Converted on 12/17/192016 by ROCKY GUTIERREZ RN Atorvastatin Calcium (Atorvastatin Calcium) 40 Mg Tablet, 40 MG PO QHS for hlp for 30 Days, #30 Ref 3 Prescribed by: GAURAV JACOBS on 10/18/19 1124 Last Action: Continued on 12/17/192016 by ROCKY GUTIERREZ RN Clopidogrel Bisulfate (Clopidogrel) 75 Mg Tablet, 75 MG PO DAILY for TO PREVENT BLOOD CLOTS, #30 Ref 0 (Reported) Entered as Reported by: RONNIE WHITNEY on 12/18/19 1156 Cyanocobalamin (Vitamin B-12) (Vitamin B-12) 100 Mcg Tablet, 100 MCG PO DAILY for , (Reported) Entered as Reported by: ROCKY GUTIERREZ RN on 12/17/192009 Last Action: Continued on 12/17/192016 by ROCKY GUTIERREZ RN Diltiazem Hcl (Diltiazem 24HR Cd) 120 Mg Cap.er.24h, 1 CAP PO DAILY for rx for 30 Days, #30 Ref 0 (Reported) Entered as Reported by: SUSY OLMOS on 12/17/19 0849 Last Taken: Unknown Dose on 12/16/19 Last Action: Continued on 12/17/192016 by ROCKY GUTIERREZ RN Finasteride (Finasteride) 5 Mg Tablet, 1 TAB PO HS, #30 Ref 11 (Reported) Entered as Reported by: JALYN MCNULTY on 04/20/15 0859 Last Action: Continued on 12/17/192016 by ROCKY GUTIERREZ RN Losartan Potassium (Losartan Potassium) 50 Mg Tablet, 50 MG PO DAILY, (Reported) Entered as Reported by: LIDIA ARMSTRONG on 02/18/17 1312 Last Action: Continued on 12/17/192016 by ROCKY GUTIERREZ RN Metoprolol Succinate (Metoprolol Succinate ( Xl )) 25 Mg Tab.er.24h, 12.5 MG PO DAILY for cad for 30 Days, #15 Ref 3 Prescribed by: GAURAV JACOBS on 10/18/19 1124 Last Taken: Unknown Dose on 12/17/19 Last Action: Continued on 12/17/192016 by ROCKY GUTIERREZ RN Discontinued Medications Aspirin (Aspirin) 81 Mg Tab.chew, 1 TAB PO DAILY for rx, #90 Ref 3 (Reported) Entered as Reported by: MIKO STEPHEN on 10/05/18 0716 Last Action: Continued on 12/17/192016 by ROCKY GUTIERREZ RN Clopidogrel Bisulfate (Clopidogrel) 75 Mg Tablet, 75 MG PO DAILY for TO PREVENT BLOOD CLOTS, #30 Ref 0 (Reported) Entered as Reported by: RONNIE WHITNEY on 12/18/19 1154 Justicifation of Admission Dx: Justifications for Admission: Justification of Admission Dx: Yes Comminuty Aquired Pneumonia: Dehydration MYRANDA ZAMARRIPA MD Dec 18, 2019 20:05
== END 2019-12-18 12:15 | disposition home or self-care (01) | DRG 244 ==
LOC: CCL 08:15 → 2 NORTH 09:23 → OBSVTOIN 09:23
PROVIDERS: ADMIT Internal Medicine Cardiovascular Disease; ATTEND Internal Medicine Cardiovascular Disease
PROC: 0JH606Z Insertion of Pacemaker, Dual Chamber into Chest Subcutaneous Tissue and Fascia, Open Approach (ICD-10-PCS; principal; 2019-12-17)
PROC: 02H63JZ Insertion of Pacemaker Lead into Right Atrium, Percutaneous Approach (ICD-10-PCS; 2019-12-17)
PROC: 02HK3JZ Insertion of Pacemaker Lead into Right Ventricle, Percutaneous Approach (ICD-10-PCS; 2019-12-17)
DX: I49.5 Sick sinus syndrome (principal); E78.5 Hyperlipidemia, unspecified; E86.0 Dehydration; I25.10 Atherosclerotic heart disease of native coronary artery without angina pectoris; I48.0 Paroxysmal atrial fibrillation; Z79.01 Long term (current) use of anticoagulants; Z79.02 Long term (current) use of antithrombotics/antiplatelets; Z79.82 Long term (current) use of aspirin; Z79.899 Other long term (current) drug therapy; I12.9 Hypertensive chronic kidney disease with stage 1 through stage 4 chronic kidney disease, or unspecified chronic kidney disease; N18.9 Chronic kidney disease, unspecified; I65.21 Occlusion and stenosis of right carotid artery; I73.9 Peripheral vascular disease, unspecified
CPT/HCPCS: 33208; 36415; 71045; 71046; 80048; 85027; 85610; 93005; 99152; 99153; C1785; C1898; J0360; J0690; J2250; J3010; J3490; J7050; G0378; J7030

== ENCOUNTER → 2020-09-02 | Outpatient (CLI) | payer MEDICARE, BC ==
[~2020-09-02] MED LIST changes: -AMIO200T4 PO; +AMIO200T6 PO; +APIX2.5T PO; +CYAN100T21 PO; +DILT120C99 PO; +GEMF600T20 PO; -GEMF600T8 PO; -LISI-334 PO; +LISI20TA18 PO; +MECO10005 PO
--- NOTE | 2020-09-02 13:28 | CARD ---
MR#: [id number] Date of Study: 09/02/2020 Ordering Physician: MYRANDA ZAMARRIPA, Referring Physician: MYRANDA ZAMARRIPA Tech: Nicolette Guerrero EVA APPROVED REPORT EXAM: Two-dimensional and M-mode echocardiogram with Doppler and color Doppler. Other Information Quality : Good INDICATION Cardiac Disease: CAD Surgery/Intervention Pacemaker: Date: 2019 CABG: Date: 2003 2D DIMENSIONS Left Atrium(2D)2.9 (1.6-4.0cm)IVSd0.7 (0.7-1.1cm) Aortic Root(2D)2.9 (2.0-3.7cm)LVDd3.1 (3.9-5.9cm) LVOT Diameter2.0 (1.8-2.4cm)PWd0.8 (0.7-1.1cm) LVDs2.9 (2.5-4.0cm)FS (%) 25.0 % SV4.4 mlLVEF(%)50.0 (>50%) Aortic Valve AoV Peak Smith.221.1cm/sAoV VTI38.3cm AO Peak GR.19.5mmHgLVOT Peak Smith.96.5cm/s AO Mean GR.12mmHgAVA (VMAX)1.37cm2 TAMARA (VTI)1.20cm2 Mitral Valve MV E Pzxnwazj05.4cm/sMV DECEL WMYP315os MV A Smugmmxb430.6cm/sE/A Ratio0.7 Tricuspid Valve TR P. Ntetelox606sn/sRAP GXPJKWJG2riZe TR Peak Gr.48otLiTJOG76ezKn LEFT VENTRICLE The left ventricle is normal size. There is normal left ventricular wall thickness. Left ventricle sy stolic function is mildly impaired. The Ejection Fraction is 45-50%. Apical motion consistent with pa cemaker activation and history of CABG. Transmitral Doppler flow pattern is Grade I-abnormal relaxati on pattern. RIGHT VENTRICLE The right ventricle is normal size. The right ventricular systolic function is normal. Device leads a re seen in the right ventricle and atrium. ATRIA The left atrium size is normal. The right atrium size is normal. The interatrial septum is intact wit h no evidence for an atrial septal defect or patent foramen ovale as noted on 2-D or Doppler imaging. AORTIC VALVE The aortic valve is calcified and displays decreased opening. Doppler and Color Flow revealed mild ec centric aortic regurgitation. Calculated aortic valve area is 1.2 cm2 with maximum pressure gradient of 20 mmHg and mean pressure gradient of 12 mmHg. Doppler and color-flow analysis revealed mild aorti c stenosis. MITRAL VALVE The mitral valve is calcified but opens well. Mitral annular calcification is mild. There is no evide nce of mitral valve prolapse. There is no mitral valve stenosis. Doppler and Color-flow revealed trac e to mild mitral regurgitation. TRICUSPID VALVE The tricuspid valve is normal in structure and function. Doppler and Color Flow revealed trace tricus pid regurgitation. The PA pressure was estimated at 26 mmHg. There is no tricuspid valve stenosis. PULMONIC VALVE The pulmonic valve is not well visualized. Doppler and Color Flow revealed trace to mild pulmonic rene vular regurgitation. There is no pulmonic valvular stenosis. GREAT VESSELS The aortic root is normal in size. The ascending aorta is not well seen. The IVC is normal in size an d collapses >50% with inspiration. PERICARDIAL EFFUSION There is no evidence of significant pericardial effusion. Critical Notification Critical Value: No <Conclusion> The left ventricle is normal size. Left ventricle systolic function is mildly impaired. The Ejection Fraction is 45-50%. Apical motion consistent with pacemaker activation and history of CABG. Doppler and Color Flow revealed mild eccentric aortic regurgitation. Calculated aortic valve area is 1.2 cm2 with maximum pressure gradient of 20 mmHg and mean pressure g radient of 12 mmHg. Doppler and color-flow analysis revealed mild aortic stenosis. Doppler and Color-flow revealed trace to mild mitral regurgitation. Doppler and Color Flow revealed trace tricuspid regurgitation. The PA pressure was estimated at 26 mmHg. Signed by : Ishaan Dasilva MD Electronically Approved : 09/02/2020 13:27:28
== END ==
LOC: ECHO 08:39
PROVIDERS: ATTEND Internal Medicine Cardiovascular Disease
DX: I08.8 Other rheumatic multiple valve diseases (principal); I25.10 Atherosclerotic heart disease of native coronary artery without angina pectoris; Z95.1 Presence of aortocoronary bypass graft
CPT/HCPCS: 93306

== ENCOUNTER → 2021-03-04 | Outpatient (CLI) | payer MEDICARE, BC ==
[~2021-03-04] MED LIST changes: +REGADENOSON 0.4 MG/5 ML DISP.SYRIN. IV ONE
--- NOTE | 2021-03-04 13:37 | RAD ---
MR#: [id number] Date of Study: 03/04/2021 Ordering Physician: MYRANDA ZAMARRIPA, Referring Physician: BIGG VAZQUEZ Tech: RT Iris Zaldivar) (N) APPROVED REPORT Test Type: Pharmacological Stress Nurse/Tech: Kimo Mayfield RN Test Indications: CAD Cardiac History: Cath w/stent in 2018, CABG 2000, PPM, HTN, Medications: See EMR. Medical History: See EMR. Resting ECG: Paced Resting Heart Rate: 70 bpm Resting Blood Pressure: 160/76mmHg Pretest Chest Pain: No chest pain Nurse/Tech Notes Lungs CTA, Heart tones regular. Consent: The procedure was explained to the patient in lay terms. Informed consent was witnessed. Jose Daniel eout was entered into [employer]. History and Stress Test performed by RT Scooter (R) (N) Pharm. Details Pharmacologic stress testing was performed using 0.4mg per 5ml of regadenoson given intravenously ove r 7-10 seconds. Stress Symptoms No chest pain or symptoms. POST EXERCISE Reason for Termination: Infusion complete Max HR: 80 bpm Blood Pressure response to exercise: Normal blood pressure response during stress. Heart Rate response to exercise: WNL Chest Pain: No. Arrhythmia: No. Frequent PVCs. ST Change: No. INTERPRETATION Stress EKG Conclusion: Non-diagnostic EKG due to pacing. Imaging Protocol IMAGE PROTOCOL: Rest Tc-99m/stress Tc-99m 1 day Rest: Stress: Viability: Radiopharm.Tc99m XkowwxeuwRk96y Sestamibi Pzwy8eFs 33mCi Duration 15min. 15min. Img Date 03/04/2021 03/04/2021 Inj-Img Mcbp64xgz. 45min. Rest Admin Site:IV - Right AntecubitalAdministrator:RT Iris Zaldivar)(N) Stress Admin Site: IV - Right AntecubitalAdministrator: RT Iris Helms)(N) STRESS DATA End Diast. Vol.90.0mlAv. Heart Rate66.0bpm End Syst. Vol.32.0mlCO Index BSA0.0L/min Myocardial Xyra687.0gEject. Bhrrmwat09.0% Stress Rates Pk. Fill Rate2.22EDV/secLVtime Pk. Fill 151.26msec Pk. Empty Rate2.93ESV/secLVtime Pk. Rjbgg256.83msec 1/3 Pk. Fill1.53EDV/sec Stress Scores Regional WT1.00Summed WT13.00 Regional WM0.00Summed WM7.00 The rest and stress images show normal perfusion, normal contraction and thickening. LV Perf. Quant 17 Seg. SSS5.00 17 Seg. SRS3.00 17 Seg. SDS2.00 Stress Defect Extent (% LAD)0.00Rest Defect Extent (% LAD)0.00Rev. Defect Extent (% LAD)0.00 Stress Defect Extent (% LCX) 36.30Rest Defect Extent (% LCX)12.50Rev. Defect Extent (% LCX)10.00 Stress Defect Extent (% RCA)6.70Rest Defect Extent (% RCA)0.00Rev. Defect Extent (% RCA)0.00 Stress Defect Extent (% SACHI)10.90Rest Defect Extent (% SACHI)2.60Rev. Defect Extent (% SACHI)3.30 Other Information Quality:Average Risk Assessment: Low Risk Conclusion 1. No evidence of EKG changes with stress testing. 2. Normal perfusion at stress/rest. 3. Low risk study. 4. EF > 60%. Signed by : Aleksey Fuentes, Electronically Approved : 03/04/2021 13:37:13
== END ==
LOC: NM 09:39
PROVIDERS: ATTEND Internal Medicine Cardiovascular Disease
DX: I25.10 Atherosclerotic heart disease of native coronary artery without angina pectoris (principal)
CPT/HCPCS: 78452; 93017; A9500; J2785

== ENCOUNTER 2021-06-02 11:13 | Emergency (ER) | payer MEDICARE, BC ==
[~2021-06-02] VITALS: Ht 177.8 cm; Wt 74.6 kg
[~2021-06-02 11:13] MED LIST changes: +AMIO200T53 PO; -AMIO200T6 PO; -REGADENOSON 0.4 MG/5 ML DISP.SYRIN. IV ONE
[2021-06-02 13:10] LABS: BASO % 0 % (0-3); EOS % 0 % (0-3); HEMATOCRIT 36.6 % (39.0-53.0); HEMOGLOBIN 12.5 g/dL (13.0-17.5); LYMPH # 0.9 x10^3/uL (1.0-4.8); LYMPH % 16 % (24-48); MEAN CORPUSCULAR HEMOGLOBIN 33 pg (25-35); MEAN CORPUSCULAR HGB CONC 34 g/dL (31-37); MEAN CORPUSCULAR VOLUME 97 fL (79-100); MONO # 0.6 x10^3/uL (0.0-1.1); MONO % 12 % (0-9); NEUT # 3.8 x10^3/uL (1.8-7.7); NEUT % 72 % (31-73); PLATELET COUNT 156 x10^3/uL (140-400); RED BLOOD COUNT 3.77 x10^6/uL (4.30-5.70); RED CELL DISTRIBUTION WIDTH 12.4 % (11.5-14.5); WHITE BLOOD COUNT 5.3 x10^3/uL (4.0-11.0)
[2021-06-02 13:20] LABS: CALCIUM 7.9 mg/dL (8.5-10.1); CREATININE 1.6 mg/dL (0.7-1.3); GFR 41.1; POTASSIUM 4.5 mmol/L (3.5-5.1)
[2021-06-02 14:06] LABS: INFLUENZA A PATIENT NEGATIVE (NEGATIVE); INFLUENZA B PATIENT NEGATIVE (NEGATIVE)
--- NOTE | 2021-06-02 14:11 | PHYS DOC ---
Past Medical History Past Medical History: CAD, High Cholesterol, Heart Disease, Hypertension Additional Past Medical Histor: cardiac stents Past Surgical History: Cholecystectomy, Coronary Bypass Surgery, Pacemaker Additional Past Surgical Histo: R neck surgery (1948: abscess that ruptured jugular vein) Smoking Status: Former Smoker Alcohol Use: None Drug Use: None General Adult EDM: Chief Complaint: FLU SYMPTOM HPI: HPI: Patient is a 85 year old male who presents with congestion and fatigue. Patient was dropped off by son to have Covid test done with his . Patient and both had congestion and fatigue after being exposed to a positive family member. Denies shortness of breath, chest pain, nausea/vomiting/diarrhea. Denies fevers. Patient has not been vaccinated for Covid. History of hypertension, high cholesterol. Review of Systems: Review of Systems: ROS At least 10 ROS systems have been reviewed and are negative except as documented in the HPI. General: Negative except as outlined in HPI above. Skin: Negative except as outlined in HPI above. HEENT: Negative except as outlined in HPI above. Neck: Negative except as outlined in HPI above. Respiratory: Negative except as outlined in HPI above.. Cardiovascular: Negative except as outlined in HPI above. Abdomen: Negative except as outlined in HPI above. : Negative except as outlined in HPI above. Back/MSK: Negative except as outlined in HPI above. Neuro: Negative except as outlined in HPI above. Psych: Negative except as outlined in HPI above. Heart Score: C/O Chest Pain: No Risk Factors: Risk Factors: DM, Current or recent (<one month) smoker, HTN, HLP, family history of CAD, obesity. Risk Scores: Score 0 - 3: 2.5% MACE over next 6 weeks - Discharge Home Score 4 - 6: 20.3% MACE over next 6 weeks - Admit for Clinical Observation Score 7 - 10: 72.7% MACE over next 6 weeks - Early Invasive Strategies Allergies: Allergies: Allergies Coded Allergies Type Severity Reaction Last Updated Verified No Known Drug Allergies 10/05/18 No Physical Exam: PE: Constitutional: Well developed, well nourished, no acute distress, non-toxic appearance. [] HENT: Normocephalic, atraumatic, bilateral external ears normal, oropharynx moist, no oral exudates, nose normal. [] Eyes: PERRLA, EOMI, conjunctiva normal, no discharge. [] Neck: Normal range of motion, no tenderness, supple, no stridor. [] Cardiovascular:Heart rate regular rhythm, no murmur [] Lungs & Thorax: Bilateral breath sounds clear to auscultation [] Abdomen: Bowel sounds normal, soft, no tenderness, no masses, no pulsatile masses. [] Skin: Warm, dry, no erythema, no rash. [] Back: No tenderness, no CVA tenderness. [] Extremities: No tenderness, no cyanosis, no clubbing, ROM intact, no edema. [] Neurologic: Alert and oriented X 3, normal motor function, normal sensory function, no focal deficits noted. [] Psychologic: Affect normal, judgement normal, mood normal. [] Current Patient Data: Labs: Laboratory Tests Test 06/02/21 12:58 White Blood Count 5.3 x10^3/uL (4.0-11.0) Red Blood Count 3.77 x10^6/uL (4.30-5.70) L Hemoglobin 12.5 g/dL (13.0-17.5) L Hematocrit 36.6 % (39.0-53.0) L Mean Corpuscular Volume 97 fL (79-100) Mean Corpuscular Hemoglobin 33 pg (25-35) Mean Corpuscular Hemoglobin Concent 34 g/dL (31-37) Red Cell Distribution Width 12.4 % (11.5-14.5) Platelet Count 156 x10^3/uL (140-400) Neutrophils (%) (Auto) 72 % (31-73) Lymphocytes (%) (Auto) 16 % (24-48) L Monocytes (%) (Auto) 12 % (0-9) H Eosinophils (%) (Auto) 0 % (0-3) Basophils (%) (Auto) 0 % (0-3) Neutrophils # (Auto) 3.8 x10^3/uL (1.8-7.7) Lymphocytes # (Auto) 0.9 x10^3/uL (1.0-4.8) L Monocytes # (Auto) 0.6 x10^3/uL (0.0-1.1) Eosinophils # (Auto) 0.0 x10^3/uL (0.0-0.7) Basophils # (Auto) 0.0 x10^3/uL (0.0-0.2) Sodium Level 140 mmol/L (136-145) Potassium Level 4.5 mmol/L (3.5-5.1) Chloride Level 105 mmol/L (98-107) Carbon Dioxide Level 24 mmol/L (21-32) Anion Gap 11 (6-14) Blood Urea Nitrogen 34 mg/dL (8-26) H Creatinine 1.6 mg/dL (0.7-1.3) H Estimated GFR (Cockcroft-Gault) 41.1 Glucose Level 115 mg/dL (70-99) H Calcium Level 7.9 mg/dL (8.5-10.1) L Troponin I High Sensitivity 60 ng/L (4-75) SARS-CoV-2 Antigen (Rapid) Positive (NEGATIVE) *A Laboratory Tests 06/02/21 12:58 Laboratory Tests 06/02/21 12:58 Vital Signs: Vital Signs Date Time Temp Pulse Resp B/P (MAP) Pulse Ox O2 Delivery O2 Flow Rate FiO2 06/02/21 12:40 98.9 75 20 174/80 (111) 97 Room Air 98.9 EKG: EKG: Heart rate 74 BPM . No STEMI. [] Radiology/Procedures: Radiology/Procedures: [] Course & Med Decision Making: Course & Med Decision Making Pertinent Labs and Imaging studies reviewed. (See chart for details) [] 85-year-old male presents with congestion and fatigue. Patient exposed to Covid positive family member over the holidays. Afebrile. Hemodynamically stable. Influenza is negative. Covid is positive. All other labs unremarkable. Discussed results with patient. Discussed quarantining with patient. Advised patient he can take [id number] medications to help with symptoms. Tylenol and ibuprofen for body aches and fever . follow-up with PCP. Discussed return precautions. Dragon Disclaimer: Dragon Disclaimer: This electronic medical record was generated, in whole or in part, using a voice recognition dictation system. Departure Departure Impression: Primary Impression: COVID Additional Impression: Fatigue Qualified Codes: R53.83 - Other fatigue Disposition: HOME / SELF CARE / HOMELESS Condition: STABLE Referrals: ISIDRO DOMINGUEZ MD (PCP) Patient Instructions: Fatigue Additional Instructions: You were seen in the emergency room for fatigue and congestion. Covid test was positive. All other labs unremarkable. Ibuprofen and Tylenol at home for fever and chills. Follow-up with your PCP. Return emergency room if you have shortness of breath, chest pain, or any worsening symptoms or concerns. EMERGENCY DEPARTMENT GENERAL DISCHARGE INSTRUCTIONS Thank you for coming to [facility] Emergency Department (ED) today and trusting us with you care. We trust that you had a positive experience in our Emergency Department. If you wish to speak to the department management, you may call the Director at [phone]. YOUR FOLLOW UP INSTRUCTIONS ARE FOLLOWS: 1. Do you have a private Doctor? If you do not have a private doctor, please ask for a resource list of physicians or clinics that may be able to assist you with follow up care. 2. The Emergency Physicain has interpreted your x-rays. The X-Ray specialist w ill also review them. If there is a change in the findings, you will be notified in 48 hours when at all possible. 3. A lab test or culture has been done, your results will be reviewed and you will be notified if you need a change in treatment. ADDITIONAL INSTRUCTIONS AND INFORMATION: 1. Your care today has been supervised by a physician who is specially trained in emergency care. Many problems require more than one evaluation for a complete diagnosis and treatment. We recommend that you schedule your follow up appointment as recommended to ensure complete treatment of you illness or injury. If you are unable to obtain follow up care and continue to have a problem, or if your condition worsens, we recommend that you return to the ED. 2. We are not able to safely determine your condition over the phone nor are we able to give sound medical advice over the phone. For these safety reasons, if you call for medical advice we will ask you to come to the ED for further evaluation. 3. If you have any questions regarding these discharge instructions please call the ED at [phone]. SAFETY INFORMATION: In the interest of safety, wellness, and injury prevention; we encourage you to wear your sealbelt, if you smoke; quite smoking, and we encourage family to use a protective helmet for bicycling and other sporting events that present an increased risk for head injury. IF YOUR SYMPTOMS WORSEN OR NEW SYMPTOMS DEVELOP, OR YOU HAVE CONCERNS ABOUT YOUR CONDITION; OR IF YOUR CONDITION WORSENS WHILE YOU ARE WAITING FOR YOUR FOLLOW UP APPOINTMENT; EITHER CONTACT YOUR PRIMARY CARE DOCTOR, THE PHYSICIAN WHOSE NAME AND NUMBER YOU WERE GIVEN, OR RETURN TO THE ED IMMEDIATELY. LD BLEDSOE APRN Jun 02, 2021 14:11
[2021-06-02 14:38] VITALS: BP 169/82
--- NOTE | 2021-06-02 15:39 | EKG ---
[facility] [address] [place] [address] Test Date: 2021-06-02 Test Time: 13:18:17 Pat Name: MONI OWENS Department: Room: Gender: M Surfacer: : 1935 Requested By: DL BLEDSOE Order Number: [id number] Reading MD: Peter Ho Measurements Intervals [place] Rate: 74 P: -90 WA: 124 QRS: 96 QRSD: 138 T: -70 QT: 412 QTc: 458 Interpretive Statements ECTOPIC ATRIAL RHYTHM RIGHT BUNDLE BRANCH BLOCK Electronically Signed On 06-03-2021 14:57:35 REPEAT CHIEF by Peter Ho
== END 2021-06-02 14:55 | disposition home or self-care (01) ==
LOC: ER 11:13
DX: U07.1 COVID-19 (principal); R53.83 Other fatigue; E78.00 Pure hypercholesterolemia, unspecified; I11.9 Hypertensive heart disease without heart failure; I25.10 Atherosclerotic heart disease of native coronary artery without angina pectoris; Z95.0 Presence of cardiac pacemaker; Z95.5 Presence of coronary angioplasty implant and graft; Z87.891 Personal history of nicotine dependence
CPT/HCPCS: 36415; 80048; 84484; 85025; 87426; 87804; 93005; 99285-25